=== PATIENT | male | born 2000 | race Hispanic/Latino ===

== ENCOUNTER 2022-02-26 23:57 | Emergency (ER) | payer OTHER, MEDICAID ==
[~2022-02-26] VITALS: Ht 177.8 cm; Wt 64.0 kg
[2022-02-27 02:20] VITALS: BP 122/65
== END 2022-02-27 02:29 | disposition home or self-care (01) ==
LOC: EDH 23:57
DX: Z04.1 Encounter for examination and observation following transport accident (principal); V49.69XA Unspecified car occupant injured in collision with other motor vehicles in traffic accident, initial encounter; Y93.89 Activity, other specified; Y92.413 State road as the place of occurrence of the external cause; Y99.8 Other external cause status
CPT/HCPCS: 70450; 70486; 72125